=== PATIENT | male | born 1960 | race Two or more races ===

== ENCOUNTER 2020-06-21 22:15 | Inpatient (IN) | payer OTHER ==
[~2020-06-21] VITALS: Ht 170.2 cm; Wt 72.6 kg
[2020-06-21] MEDS ORDERED: SODIUM CHLORIDE 0.9% 1,000 ML IV ONE (22:29)
[2020-06-21 23:09] LABS: BASOPHILS % 0.8 % (0.0-2.0); EOSINOPHILS % 10.2 % (0.0-5.0); HEMATOCRIT. 42.9 % (42.0-52.0); HEMOGLOBIN. 14.3 g/dL (14.0-18.0); LYMPHOCYTES % 22.1 % (20.0-50.0); MEAN CORPUSCULAR HEMOGLOBIN 30.3 pg (28.0-32.0); MEAN CORPUSCULAR VOLUME 90.7 fL (80.0-94.0); MEAN PLATELET VOLUME 7.6 fl (7.4-10.4); MONOCYTES % 8.1 % (2.0-8.0); NEUTROPHILS % 58.8 % (40.0-76.0); PLATELET 328 x1000/uL (130-400); RED BLOOD CELL COUNT 4.73 mill/uL (4.7-6.1); RED CELL DISTRIBUTION WIDTH 13.4 % (11.6-14.6)
[2020-06-21 23:16] LABS: CHLORIDE 106 mEq/L (98-107)
[2020-06-21 23:19] LABS: PROTHROMBIN TIME 10.9 sec (9.6-11.0)
[2020-06-21 23:52] LABS: BG BASE EXCESS -2.4 mmol/L (-2.0-2.0); BG CARBOXYHEMOGLOBIN 0.3 % (0.5-1.5); BG DEOXYHEMOGLOBIN 1.6 % (0.0-5.0); BG FRACTION INSPIRED OXYGEN 40; BG HCO3 ACT 22.4 mmol/L (22.0-26.0); BG METHEMOGLOBIN 0.4 % (0.0-1.5); BG OXYGEN SATURATION 98.4 % (92.0-98.5); BG OXYHEMOGLOBIN 97.7 % (94.0-97.0); BG PH 7.378 (7.350-7.450); BG PO2 127.6 mmHg (75.0-100.0); BG SAMPLE SITE RIGHT RADIAL; BG TOTAL HEMOGLOBIN 14.7 g/dL (12.0-18.0); BG VENT MODE NASAL CANNULA
[2020-06-22] MEDS ORDERED: IPRATROPIUM BROMIDE (0.02%) 0.5MG/2.5ML NEB HHN STA (00:35)
[2020-06-22] MEDS ORDERED: METHYLPREDNISOLONE SOD SUCC 125 MG/2 ML VIAL IV STA (00:35)
[2020-06-22] MEDS: ALBUTEROL (0.083%) 2.5MG/3ML NEB HHN SCH (00:42)
[2020-06-22] MEDS ORDERED: MAGNESIUM 2 G PREMIX 50 ML IV ONE (00:45)
[2020-06-22 03:22] LABS: CLARITY URINE CLEAR (CLEAR); COLOR URINE YELLOW (YELLOW); KETONES URINE NEGATIVE (NEGATIVE); LEUKOCYTE ESTERASE URINE NEGATIVE (NEGATIVE); NITRITE URINE NEGATIVE (NEGATIVE); OCCULT BLOOD URINE NEGATIVE (NEGATIVE); PROTEIN URINE NEGATIVE (NEGATIVE); SPECIFIC GRAVITY URINE 1.019 (1.005-1.030); UROBILINOGEN URINE 0.2 E.U./dL (0.2-1.0)
[2020-06-22 06:00] VITALS: BP 163/77
[2020-06-22 08:00] VITALS: BP 145/75
[2020-06-22 09:00] VITALS: BP 145/75
[2020-06-22] MEDS ORDERED: ACETAMINOPHEN 650MG SUPP PR PRN (09:30)
[2020-06-22] MEDS ORDERED: IPRATROPIUM/ALBUTEROL 0.5-3(2.5)MG/3ML NEB NEB PRN (09:30)
[2020-06-22] MEDS ORDERED: IPRATROPIUM/ALBUTEROL 0.5-3(2.5)MG/3ML NEB NEB SCH (09:30)
[2020-06-22] MEDS ORDERED: ONDANSETRON HCL 4MG/2ML INJ IV PRN (09:30)
[2020-06-22] MEDS ORDERED: CLONIDINE 0.1MG TABLET PO PRN (09:30)
[2020-06-22] MEDS ORDERED: ACETAMINOPHEN 325MG TABLET PO PRN (09:30)
[2020-06-22] MEDS ORDERED: MAGNESIUM/ALUMINUM HYDROXIDE/SIMETHICONE 30ML UDC PO PRN (09:30)
[2020-06-22] MEDS ORDERED: HYDROCODONE/ACETAMINOPHEN 5/325MG TABLET PO PRN (09:30)
[2020-06-22] MEDS ORDERED: NA PHOS,M-B/NA PHOS,DI-BA ENEMA 118ML PR PRN (09:30)
[2020-06-22] MEDS ORDERED: AZITHROMYCIN 500 MG TABLET PO NR (09:30)
[2020-06-22] MEDS ORDERED: DOCUSATE SODIUM 100MG CAPSULE PO PRN (09:30)
[2020-06-22] MEDS ORDERED: CEFTRIAXONE 1 G PREMIX 50 ML IV SCH (09:30)
[2020-06-22] MEDS ORDERED: LORAZEPAM 0.5MG TABLET PO PRN (09:30)
[2020-06-22] MEDS ORDERED: DIPHENHYDRAMINE 50MG/ML VIAL IV PRN (09:30)
[2020-06-22] MEDS: ALBUTEROL 6.7GM HFA INHALER ORI SCH ×5 (10:00→21:30)
[2020-06-22 10:22] LABS: BASOPHILS % 0.4 % (0.0-2.0); EOSINOPHILS % 0.1 % (0.0-5.0); HEMATOCRIT. 41.8 % (42.0-52.0); HEMOGLOBIN. 14.3 g/dL (14.0-18.0); LYMPHOCYTES % 13.3 % (20.0-50.0); MEAN CORPUSCULAR HEMOGLOBIN 30.7 pg (28.0-32.0); MEAN CORPUSCULAR VOLUME 89.7 fL (80.0-94.0); MEAN PLATELET VOLUME 7.1 fl (7.4-10.4); NEUTROPHILS % 85.2 % (40.0-76.0); PLATELET 331 x1000/uL (130-400); RED BLOOD CELL COUNT 4.66 mill/uL (4.7-6.1); RED CELL DISTRIBUTION WIDTH 13.3 % (11.6-14.6)
[2020-06-22 10:36] LABS: CHLORIDE 103 mEq/L (98-107)
[2020-06-22] MEDS: ENOXAPARIN 30MG/0.3ML SYR SUBCUT SCH ×2 (11:32→20:51)
[2020-06-22] MEDS: ZINC SULFATE 220 MG ( 50 ) CAPSULE PO SCH (11:32)
[2020-06-22] MEDS: ASCORBIC ACID 500 MG TABLET PO SCH ×2 (11:32→20:51)
[2020-06-22] MEDS: CEFTRIAXONE 1,000 MG in DEXTROSE 5% WATER 50 ML IV SCH (11:48)
[2020-06-22] MEDS: METHYLPREDNISOLONE SOD SUCC 40 MG/ML VIAL IV SCH ×2 (11:48→18:33)
[2020-06-22] MEDS ORDERED: AZITHROMYCIN 250 MG TABLET PO NR (12:00)
[2020-06-22 13:20] VITALS: BP 147/91
[2020-06-22] MEDS ORDERED: ALBU05 NEB (14:15)
[2020-06-22 20:33] VITALS: BP 152/70
[2020-06-22] MEDS: FAMOTIDINE 20MG TABLET PO SCH (20:50)
[2020-06-22 22:00] VITALS: BP 172/84
[2020-06-23] MEDS: ALBUTEROL (0.083%) 2.5MG/3ML NEB HHN SCH ×6 (00:15→20:24)
[2020-06-23] MEDS: METHYLPREDNISOLONE SOD SUCC 40 MG/ML VIAL IV SCH ×4 (01:31→21:16)
[2020-06-23 04:00] VITALS: BP 144/77
[2020-06-23 08:00] VITALS: BP 148/84
[2020-06-23] MEDS: AZITHROMYCIN 250 MG TABLET PO SCH (08:40)
[2020-06-23] MEDS: ENOXAPARIN 30MG/0.3ML SYR SUBCUT SCH (08:40)
[2020-06-23] MEDS: ASCORBIC ACID 500 MG TABLET PO SCH ×2 (08:40→21:16)
[2020-06-23] MEDS: ZINC SULFATE 220 MG ( 50 ) CAPSULE PO SCH (08:40)
[2020-06-23] MEDS: GUAIFENESIN 200MG/10ML SUGAR FREE UDC PO PRN ×3 (08:46→21:20)
[2020-06-23 08:49] LABS: BASOPHILS % 0.3 % (0.0-2.0); HEMATOCRIT. 40.8 % (42.0-52.0); HEMOGLOBIN. 13.8 g/dL (14.0-18.0); LYMPHOCYTES % 8.7 % (20.0-50.0); MEAN CORPUSCULAR HEMOGLOBIN 30.6 pg (28.0-32.0); MEAN CORPUSCULAR VOLUME 90.4 fL (80.0-94.0); MEAN PLATELET VOLUME 7.9 fl (7.4-10.4); MONOCYTES % 3.6 % (2.0-8.0); NEUTROPHILS % 87.4 % (40.0-76.0); PLATELET 364 x1000/uL (130-400); RED BLOOD CELL COUNT 4.52 mill/uL (4.7-6.1); RED CELL DISTRIBUTION WIDTH 13.6 % (11.6-14.6)
[2020-06-23 08:54] LABS: CHLORIDE 104 mEq/L (98-107)
[2020-06-23 09:03] LABS: LDL CHOLESTEROL 156 mg/dL (5-100)
[2020-06-23 09:05] LABS: HDL CHOLESTEROL 53 mg/dL (40-59); T4 FREE 1.05 ng/dL (0.76-1.46)
[2020-06-23 11:14] LABS: *AMPHETAMINES SCREEN URINE NEGATIVE (NEGATIVE)
[2020-06-23 11:15] LABS: *BARBITURATES SCREEN URINE NEGATIVE (NEGATIVE); *BENZODIAZEPINES SCREEN URINE NEGATIVE (NEGATIVE); *COCAINE SCREEN URINE NEGATIVE (NEGATIVE); METHADONE URINE SCREEN NEGATIVE (NEGATIVE); OPIATES URINE SCREEN NEGATIVE (NEGATIVE)
[2020-06-23 11:16] LABS: CANNABINOID URINE SCREEN NEGATIVE (NEGATIVE); PHENCYCLIDINE URINE SCREEN NEGATIVE (NEGATIVE)
[2020-06-23] MEDS: CEFTRIAXONE 1,000 MG in DEXTROSE 5% WATER 50 ML IV SCH (15:42)
[2020-06-23 16:00] VITALS: BP 145/71
[2020-06-23 20:00] VITALS: BP 144/75
[2020-06-23] MEDS: FAMOTIDINE 20MG TABLET PO SCH (21:16)
[2020-06-24] VITALS: BP 129/69
[2020-06-24] MEDS: ALBUTEROL (0.083%) 2.5MG/3ML NEB HHN SCH ×5 (00:56→16:02)
[2020-06-24] MEDS: GUAIFENESIN 200MG/10ML SUGAR FREE UDC PO PRN ×2 (06:23→11:56)
[2020-06-24 06:26] VITALS: BP 143/77
[2020-06-24 06:49] LABS: BASOPHILS % 0.3 % (0.0-2.0); EOSINOPHILS % 0.1 % (0.0-5.0); HEMATOCRIT. 39.7 % (42.0-52.0); HEMOGLOBIN. 13.4 g/dL (14.0-18.0); LYMPHOCYTES % 7.3 % (20.0-50.0); MEAN CORPUSCULAR HEMOGLOBIN 30.4 pg (28.0-32.0); MEAN PLATELET VOLUME 7.7 fl (7.4-10.4); MONOCYTES % 5.7 % (2.0-8.0); NEUTROPHILS % 86.6 % (40.0-76.0); PLATELET 337 x1000/uL (130-400); RED BLOOD CELL COUNT 4.41 mill/uL (4.7-6.1); RED CELL DISTRIBUTION WIDTH 13.4 % (11.6-14.6)
[2020-06-24 07:10] LABS: CHLORIDE 106 mEq/L (98-107)
[2020-06-24 08:00] VITALS: BP 134/72
[2020-06-24] MEDS ORDERED: ENOXAPARIN 40MG/0.4ML SYR SUBCUT SCH (09:00)
[2020-06-24] MEDS: ZINC SULFATE 220 MG ( 50 ) CAPSULE PO SCH (09:09)
[2020-06-24] MEDS: ASCORBIC ACID 500 MG TABLET PO SCH (09:09)
[2020-06-24] MEDS: METHYLPREDNISOLONE SOD SUCC 40 MG/ML VIAL IV SCH (09:09)
[2020-06-24] MEDS: AZITHROMYCIN 250 MG TABLET PO SCH (09:09)
[2020-06-24 12:00] VITALS: BP 141/74
[2020-06-24] MEDS: CEFTRIAXONE 1,000 MG in DEXTROSE 5% WATER 50 ML IV SCH (12:30)
[2020-06-24] MEDS ORDERED: P20 PO (12:31)
[2020-06-24] MEDS ORDERED: IPRA3AMP9 NEB (12:31)
[2020-06-24] MEDS ORDERED: FLUT1DIS3 INH (12:35)
[2020-06-24 15:55] LABS: HEMOGLOBIN. 13.9 g/dL (14.0-18.0); MEAN CORPUSCULAR HEMOGLOBIN 30.6 pg (28.0-32.0); MEAN PLATELET VOLUME 8.1 fl (7.4-10.4); PLATELET 370 x1000/uL (130-400); RED BLOOD CELL COUNT 4.55 mill/uL (4.7-6.1); RED CELL DISTRIBUTION WIDTH 13.8 % (11.6-14.6)
[2020-06-24 16:00] VITALS: BP 125/79
[2020-06-24 16:47] VITALS: BP 125/79
[2020-06-24 16:56] LABS: PLATELET ESTIMATE NORMAL
[2020-06-25] MEDS ORDERED: METHYLPREDNISOLONE SOD SUCC 40 MG/ML VIAL IV SCH (09:00)
== END 2020-06-24 18:48 | disposition home or self-care (01) | DRG 202 ==
LOC: ER 22:15 → 7WST 06-22 02:45 → EDBEDREQTM 06-22 02:55 → EDBEDREQ 06-22 02:55 → EDBEDREQDT 06-22 02:55 → EDBEDREQSVC 06-22 02:55 → ENRESERV 06-22 04:52 → 7WST 06-22 16:26 → 5WST 06-22 23:30
PROVIDERS: ADMIT Internal Medicine; ATTEND Internal Medicine
DX: J45.901 Unspecified asthma with (acute) exacerbation (principal); J18.9 Pneumonia, unspecified organism; I10 Essential (primary) hypertension; E66.9 Obesity, unspecified; E78.5 Hyperlipidemia, unspecified; R73.03 Prediabetes; Z20.828 Contact with and (suspected) exposure to other viral communicable diseases; R73.9 Hyperglycemia, unspecified; Z68.25 Body mass index [BMI] 25.0-25.9, adult; Z79.899 Other long term (current) drug therapy; T38.0X5A Adverse effect of glucocorticoids and synthetic analogues, initial encounter; Y92.89 Other specified places as the place of occurrence of the external cause; R06.03 Acute respiratory distress
CPT/HCPCS: 36415; 36600; 71045; 80048; 80053; 80061; 80305; 81003; 82375; 82805; 83036; 83605; 83880; 84145; 84439; 84443; 84484; 85025; 85379; 86850; 86900; 93005; 93306; 93970; 94640; 94644; 99291; J0696; J1650; J2920; J2930; J3475; J7030; J7060; U0003-CS